=== PATIENT | male | born 1975 | race Caucasian/White ===

== ENCOUNTER → 2017-09-26 | Outpatient (CLI) | payer OTHER ==
[~2017-09-26] VITALS: Ht 180.3 cm; Wt 74.8 kg
[~2017-09-26] MED LIST: CLR10 PO; ESOM20CA PO; PSEU30TA64 PO
[2017-09-26 15:41] VITALS: BP 118/75; PULSE 73; Ht 180.3 cm; Wt 74.8 kg
== END | disposition home or self-care (01) ==
LOC: C.NEUR 14:40
PROVIDERS: ATTEND Internal Medicine Pulmonary Disease
DX: F51.04 Psychophysiologic insomnia (principal)